=== PATIENT | female | born 1960 | race Caucasian/White ===

== ENCOUNTER → 2019-11-20 10:54 | Outpatient (CLI) | payer OTHER, SELFPAY ==
[2019-11-20 11:53] LABS: Add Manual Diff / Slide Review NO; Basophils Absolute Auto 0 /uL (0-100); Basophils Percent Auto 0.8 % (0-2); Eosinophils Absolute Auto 100 /uL (0-450); Eosinophils Percent Auto 1.4 % (2-4); Hematocrit 39.2 % (36-46); Hemoglobin 13.4 g/dL (12.0-16.0); Lymphocytes Absolute Auto 1800 /uL (1100-4500); Lymphocytes Percent Auto 33.6 % (25-40); Mean Corpuscular HGB Conc 34.2 % (30-36); Mean Corpuscular Hemoglobin 29.6 PG (26-34); Mean Corpuscular Volume 86.7 fL (80-100); Monocytes Absolute Auto 400 /uL (0-900); Monocytes Percent Auto 8.3 % (3-14); Neutrophils Absolute Auto 3000 /uL (1500-7000); Neutrophils Percent Auto 55.9 % (50-75); Platelet Count 195 X10^3/uL (150-400); Red Blood Cell Count 4.53 X10^6/uL (4.0-5.2); White Blood Cell Count 5.4 X10^3/uL (4.5-11.0)
[2019-11-20 11:54] LABS: Hemoglobin A1C% w Est Avg Glu 5.5 % (4.0-6.0)
[2019-11-20 12:03] LABS: BUN Creatinine Ratio 30.3 (6-22); Blood Urea Nitrogen 20 mg/dL (7-17); Calcium 9.3 mg/dL (8.4-10.2); Carbon Dioxide 30 mmol/L (22-32); Chloride 105 mmol/L (98-107); Estimated Glomerular Filt Rate > 60.0 mL/min (>60); Glucose 106 mg/dL (80-110); HEMOLYSIS < 15 (0-50); Potassium 4.1 mmol/L (3.4-5.1); Sodium 140 mmol/L (137-145)
== END ==
PROVIDERS: Family Provider Naturopath; PCP Physician Assistant; Referring Provider Orthopaedic Surgery; Visit Provider Orthopaedic Surgery
DX: Z01.818 Encounter for other preprocedural examination (principal); Z01.812 Encounter for preprocedural laboratory examination; R73.9 Hyperglycemia, unspecified
CPT/HCPCS: 36415; 80048; 83036; 85025; 93005

== ENCOUNTER 2019-12-11 08:05 | Day surgery (SDC) | payer OTHER, SELFPAY ==
[2019-11-26 09:01] VITALS: BMI 28.4
[2019-12-11] VITALS (16 sets, daily range): BP systolic 100–174; BP diastolic 61–99; PULSE 48–85; RESP 9–17; TEMP 35.4–38.1; O2SAT 91–100; BMI 28.4
--- NOTE | 2019-12-11 06:00 | DI.RAD.S_ITS ---
PROCEDURE: XR KNEE RT 1TO2V INDICATIONS: Post op total knee TECHNIQUE: 2 view(s) of the knee acquired. COMPARISON: [facility], XR KNEE ARTHRITIC SERIES RT, 07/11/2019, 13:27. FINDINGS: Bones: Patient is status post knee joint arthroplasty. Hardware components are in expected positions. Visualized bony structures are intact. Soft tissues: Overlying postoperative changes are noted. IMPRESSION: Expected postsurgical change for right knee arthroplasty. Dictated by: Danica Toussaint MD, PhD on 12/11/2019 at 18:35 Approved by: Danica Toussaint MD, PhD on 12/11/2019 at 18:40
[2019-12-11] MEDS: ACETAMINOPHEN 325 MG TABLET 975 MG PO (09:04)
[2019-12-11] MEDS: PREGABALIN 75 MG CAPSULE PO (09:05)
[2019-12-11] MEDS: LACTATED RINGERS 1,000 ML 42 ML IV ×2 (09:05→12:19)
[2019-12-11] MEDS: CELECOXIB 200 MG CAPSULE PO (09:05)
--- NOTE | 2019-12-11 09:45 | PM.PREOP ---
Pre-operative Note COVID-19 COVID-19 status: Negative Result date/Date tested (Pos, Neg/Pending): 12/08/19 Interval Note History & Physical reviewed/Exam performed by Physician: Yes Changes to H&P: No
--- NOTE | 2019-12-11 09:57 | P.OP_ITS ---
Operative Date/Time/Diagnoses Date of procedure: 12/11/19 Time of procedure: 12:35 Pre-op diagnosis: Right knee osteoarthritis Post-op diagnosis: same Procedure & Clinicians Procedure: Right total knee replacement Same procedure as scheduled: Yes Indications: The patient has had progressively worsening right knee pain with radiographic changes consistent with arthritis. Non-operative management has failed and the patient has requested total knee replacement. The risks, benefits and alternatives to surgery were discussed with the patient prior to proceeding. Risks discussed included, but were not limited to, failure to relieve pain, stiffness, infection, nerve damage, deep venous thrombosis, pulmonary embolism, stroke, coma, heart attack, permanent paralysis and , as well as the potential need for eventual revision of the prosthetic. Surgeon: Aguila Cam Manager Data Warehouse: Deisy Pulido Click Yes if Unassisted: No Anesthesia Type: General, Spinal and Local Operative Notes Findings: Severe medial and moderate patellofemoral osteoarthritis with flexion contracture Closure Type: primary Specimen(s): none sent Prosthetic devices, grafts, tissues, transplants, or devices: Implants used in this procedure were manufactured by the [employer] and [employer] and included the BCS II Journey total knee replacement with a size 6 right Oxinium femoral component, a size 5 right non porous tibial base plate, a 9 mm cross- linked polyethylene tibial insert, and a 32 mm oval Meredith II patellar component. Applied: implant(s) Estimated Blood Loss (mL): 50 Blood products transfused: none Tourniquet time (min): 56 Procedure in detail: The patient was seen in the pre-operative area, where the patient identified the right knee as the operative site and this was marked with my initials. The patient received pre-operative antibiotics, and was taken to the operating room and placed on the operative table in the supine position. After satisfactory anesthesia, a physician practice administrator out was performed. The right leg was encircled with a tourniquet about the proximal thigh, and the leg was prepared from the toes to the tourniquet with ChloroPrep in the usual fashion and draped through sterile drapes. The leg was elevated and exsanguinated with Eschmark bandage and the tourniquet inflated to 250 mmHg pressure. The knee was approached through an approximately 18 cm incision centered over the patella and carried into the knee through a medial parapatellar arthrotomy. The anterior osteophytes and soft tissues were removed. The rotational landmarks of Gadsden's line and the transepicondylar axis were marked on the femur with electrocautery, and intramedullary guide holes for the femur and tibia were created. The distal femoral cut was made in 6 degrees of valgus using the intramedullary guide at the +2 cut setting due to the pre-existing flexion contracture. The proximal tibial cut was then made using the intramedullary guide, taking 9 mm of bone off the less involved side. The extension gap was checked and the rotation of the femoral component confirmed with the gap balancing system. The anterior, posterior and chamfer cuts were then made. The posterior osteophytes and soft tissues were then removed. The posterior capsule was injected with part of a mixture of 60 ml 0.25% Marcaine mixed with 20 ml Exparel and 4 mg of morphine for post-operative pain control. The remainder of this mixture was injected into the capsule and subcutaneous tissues during cement curing. The tibia was prepared with the rotation set by an extra medullary guide. Trial tibial and femoral components were then placed and the intercondylar notch cut through the femoral trial. Range of motion was 0-135 degrees, with good stability throughout the range. The patella was then cut to accommodate the patellar prosthetic. There was no need for a lateral release. The trials were then removed, and the femoral hole plugged with a bone plug. The bone was prepared with pulsatile lavage, and dried with a sponge. Cement was applied and the final prosthetics placed. Excess cement was removed during and after cement curing. After confirming there was no extruded cement posteriorly, the final tibial insert was placed. The knee was copiously irrigated and the tourniquet deflated. Hemostasis was obtained. The capsule was closed with in terrupted # 2 polyester suture. The subcutaneous layer was closed with 3-0 Vicryl, and the skin with a running 3-0 V-Lock suture and Dermabond. An Aquacel Ag dressing was applied and the patient was taken to recovery having tolerated the procedure well. Complications: none Post-operative Condition: stable Disposition: PACU Plan for aftercare: The patient will be maintained on a standard total knee replacement protocol with weight bearing as tolerated. The patient will receive aspirin and sequential compression devices for DVT prophylaxis. The patient will be discharged home when safe for the home environment.
[2019-12-11] MEDS: CEFAZOLIN 2 GM/100 ML FROZ.PIGGY IV (10:41)
[2019-12-11] MEDS: TRANEXAMIC ACID 1,000 MG VIAL 1000 MG INJ ×2 (11:06→12:09)
--- NOTE | 2019-12-11 11:20 | SUR.OPER ---
Supine on padded OR bed. Pillow under head, arms secured on padded armboards <90 degree abduction. Safety belt across torso. Non-operative leg secured with tape over blanket over lower leg. Operative leg secured in Richard positioner. Foam padded brace at thigh of operative leg.
[2019-12-11] MEDS: BUPIVACAINE 0.25% W/ EPI 30 ML VIAL 60 ML INJ (11:29)
[2019-12-11] MEDS: MORPHINE 4 MG/ML INJ INJ (11:30)
[2019-12-11] MEDS: BUPIVACAINE LIPOSOME 266 MG/20 ML VIAL INJ (11:30)
[2019-12-11] MEDS: fentaNYL 100 MCG/2 ML INJ IV ×2 (12:47→12:56)
[2019-12-11] MEDS: HYDROMORPHONE 2 MG INJ IV ×4 (12:47→13:15)
[2019-12-11] MEDS: OXYCODONE IR 5 MG TABLET PO ×4 (13:28→20:50)
--- NOTE | 2019-12-11 14:13 | PC.NURSE ---
Day shift: Pt on unit at approx 1415 from PACU.
--- NOTE | 2019-12-11 14:19 | SUR.PHASEI ---
Patient taken up to room 210 with all belongings. Left in stable condition with receiving RN at bedside.
[2019-12-11] MEDS: LACTATED RINGERS 1,000 ML 100 ML IV ×2 (16:27→22:11)
[2019-12-11] MEDS: ACETAMINOPHEN 325 MG TABLET 650 MG PO ×2 (16:27→17:13)
[2019-12-11] MEDS: ONDANSETRON 4 MG ODT PO (16:40)
[2019-12-11] MEDS: IBUPROFEN 400 MG TABLET PO ×2 (17:10→20:50)
[2019-12-11] MEDS: ASPIRIN EC 81 MG TABLET PO (20:49)
[2019-12-11] MEDS: DOCUSATE 100 MG CAPSULE PO (20:50)
[2019-12-11] MEDS: PANTOPRAZOLE 20 MG TABLET PO (20:53)
[2019-12-12 00:25] VITALS: BP 115/60; PULSE 64; RESP 18; TEMP 36.2; O2SAT 96
[2019-12-12] MEDS: OXYCODONE IR 5 MG TABLET PO ×3 (00:28→12:58)
[2019-12-12 04:10] VITALS: BP 101/54; PULSE 63; RESP 18; TEMP 36.3; O2SAT 96
[2019-12-12] MEDS: IBUPROFEN 400 MG TABLET PO ×2 (05:06→08:49)
[2019-12-12] MEDS: PANTOPRAZOLE 20 MG TABLET PO (05:18)
--- NOTE | 2019-12-12 07:30 | PM.DS.1 ---
History of Present Illness History of Present Illness Date Patient Seen: 12/12/19 Time Patient Seen: 07:30 Chief complaint: Right Total knee Arthroplasty Narrative: History and physical is contained in the chart previously completed note. Please refer to that note for this information. Discharge Providers Provider Discharge Date: 12/12/19 Primary care physician: Anabelle Bishop PA-C Consults: 12/11/19 14:13 Consult to Discharge Planning Routine Comment: Consult to Physical Therapy Evaluate & Treat Comment: Physician Instructions: postop TKA protocol Discharge provider: Aguila Cam MD Summary Hospital Course Discharge Diagnosis: 1. Right knee osteoarthritis 2. Mild post hemorrhagic anemia Hospital Course: The patient was admitted to the hospital and taken directly to the operating room on December 11, 2019 where she underwent a right total knee replacement without complications. She was stable postoperatively overnight with good pain control. On postoperative day 1 it appears she will be ready for discharge later today. Status at Discharge Cognitive/behavioral status at discharge: oriented Functional status at discharge: uses cane/walker Overall status at discharge: patient is progressing back to baseline Time Spent with Patient Time spent: Less than 30 minutes Exam Vital Signs (past 8 hours): - 12/12/19 00:25 12/12/19 04:10 Temperature 97.2 F L 97.4 F L Pulse Rate 64 63 Respiratory Rate 18 18 Blood Pressure 115/60 101/54 L Pulse Oximetry 96 96 Oxygen Delivery Method Room Air Oxygen Flow Rate 0 Narrative Exam Narrative: Right knee wound is dressed with no drainage on the bandage. Calf is soft. Light touch and motion are intact in the right lower extremity. Objective Labs Result Diagrams: 12/12/19 05:20 Labs: Laboratory Results - last 24 hr 12/12/19 05:20 Hgb 11.0 L Hct 33.0 L Discharge Assessment & Plan Assessment and Plan Assessment: Stable postop day 1 from right total knee replacement. She has an anticipated post hemorrhagic anemia. She has been able to get up and go to the bedside commode and it is reasonable to assume she will be ready for discharge later in the day. Plan of Treatment: Discharged today with follow-up in my office in 2 weeks. Discharge prescriptions for oxycodone and Vistaril are on the chart along with instructions for use of Tylenol, ibuprofen and low-dose aspirin. DVT prophylaxis will be with low-dose aspirin and frequent ambulation. Discharge Plan Discharge Plan Patient Disposition: Home Discharge Med Rec/Prescriptions Prescriptions: New acetaminophen 325 mg Tablet 650 mg PO TID 30 Days Qty: 180 RF: 0 aspirin 81 mg Tablet,Delayed Release (Dr/Ec) 81 mg PO BID 42 Days Qty: 84 RF: 0 ibuprofen 400 mg Tablet 400 mg PO Q4HR 30 Days RF: 0 oxycodone 5 mg Tablet 5 mg PO Q4H PRN (Reason: Pain, Moderate (4-6)) Qty: 40 RF: 0 hydroxyzine pamoate 25 mg Capsule 25 mg PO Q6HR PRN (Reason: Nausea) Qty: 30 RF: 0 Continued diphenhydramine-acetaminophen [Acetaminophen PM] 25-500 mg Tablet 0.5 tab PO BEDTIME PRN (Reason: Sleep) RF: 0 lysine 500 mg Tablet 500 mg PO DAILY RF: 0 omeprazole 20 mg Capsule,Delayed Release(Dr/Ec) 20 mg PO DAILY PRN (Reason: gerd symptoms) RF: 0 Discontinued ibuprofen 200 mg Capsule 400 mg PO BEDTIME PRN (Reason: Pain) RF: 0 Follow up/Referrals: Aguila Cam MD [Physician] - 2 Weeks Discharge Orders: Discharge (Order); Ordered 12/12/19 Ordered By: Aguila Cam Provider Discharge Instructions Diet: Diet as Tolerated and Regular Activity: You may bear weight as tolerated on your right leg. Cold/Heat Therapy: Apply ice for 15 minutes every hour as needed for pain control to the right knee. Skin/Wound/Dressing Care Report to your healthcare provider any signs of infection, such as:: chills, fever, night sweats, increased pain, unusual drainage and unusual redness Dressing: Remove the Buzz wrap 3 days after surgery. You may remove the Buzz wrap to shower. Leave the deeper dressing in place until your follow-up appointment. You may shower with the dressing in place. If the central strip of the dressing becomes saturated with either water or blood, please call the office. Visit Report/Discharge Packet Instructions: DI for Knee Replacement Stand Alone Forms: Surgery Discharge Discharge Data Primary Care Provider: Anabelle Bishpo Attending Provider: Aguila Cam Quality VTE Deep Vein Thrombosis/Pulmonary Embolism Present on Admission: No
[2019-12-12 08:10] VITALS: BP 116/72; PULSE 66; RESP 16; TEMP 36.6; O2SAT 98
[2019-12-12] MEDS: ASPIRIN EC 81 MG TABLET PO (08:49)
[2019-12-12] MEDS: DOCUSATE 100 MG CAPSULE PO (08:50)
[2019-12-12] MEDS: ACETAMINOPHEN 325 MG TABLET 650 MG PO (08:50)
--- NOTE | 2019-12-12 10:13 | PC.NURSE ---
Patient has an aquacel dressing to her r.knee with an lacho wrap in place. CMS wnl and ppx2. Patient is moving well with physical therapy. She is going to leave here at 1315 to catch the 1410 ferry to [facility]. Priority loading pass given to patient, will discharge around 1300 and go over her paperwork.
--- NOTE | 2019-12-12 10:19 | PT.IIE ---
Current Diagnoses Unilateral primary osteoarthritis, right knee (12/11/19) Surgery Performed Operation Date: 12/11/19 10:15 Actual Procedures p Total Knee Arthroplasty(Right) - Aguila Cam MD Surgical History (Last Updated 11/26/19 @ 09:19 by Blessing Winchester RN) History of dilatation and curettage (Acute) Hx of microdiscectomy (Acute ~2004) Medical History (Last Updated 11/26/19 @ 09:19 by Blessing Winchester RN) Adrenal abnormality (Acute ~2017) Depression (Acute) GERD (gastroesophageal reflux disease) (Acute) Injury (Acute ~1982) Panic attacks (Acute) Tinnitus (Acute) Physical Therapy Inpatient Evaluation/Re-Eval M1 PT/OT-IP Prior Functional Status Start: 12/12/19 08:31 Freq: NEEDED Status: Active Protocol: Document 12/12/19 10:05 AW (Rec: 12/12/19 10:19 AW [id number]) Medical Review Prior Functional Status Medical History Reviewed Yes Communication WNL Mobility and Gait Pt is an independent ambulator who can walk up to a mile Activities of Daily Living and IADL's IND Social History Household Members significant other Living Arrangements House Number of Floors (Floors) Two Floors Number of Stairs To Enter/Railing? 3 YOUSUF with left rail ascending . Stairs are wide enough to have a AUTOMOTIVE AIRCONDITIONING MECHANIC on the right side. Pt will stay on the main/entry level paralegal for now. 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 She lives with her significant other, Sergei, who also works real estate internship. He is planning to work this , Tuesday, and part of a day next Tuesday but will otherwise be home for a few weeks. M2 PT-IP Current Condition Start: 12/12/19 08:31 Freq: NEEDED Status: Active Protocol: Document 12/12/19 10:05 AW (Rec: 12/12/19 10:19 AW [email or web address]) Physical Therapy Current Condition Current Condition Evaluation Date 12/12/19 Treatment Diagnosis R TKA; difficulty in walking Onset Date 12/11/19 Weight Bearing Status Weight Bearing Status Weight Bear as Tolerated M3 PT-IP Subjective Start: 12/12/19 08:31 Freq: NEEDED Status: Active Protocol: Document 12/12/19 10:05 AW (Rec: 12/12/19 10:19 AW [email or web address]) Subjective Physical Therapy Visit Type Type Initial Evaluation Visit Start Time 09:00 Visit Stop Time 09:27 Total Visit Minutes 27 Notes Pt's SO present throughout evaluation Physical Therapy Visit Comments Patient Comments Pt is willing to participate with PT Patient Goals Pt hopes to be on a 1415 ferry back to [facility] today Therapy Pain Assessment Pain When Pain Assessed At Rest Pain Present Pain Present Pain Reported Location right knee Intensity 5 Scale Used 5/10 at rest; 7/10 with mobility Pain Management Techniques Apply Cold,Timing of Activity with Medications M4 PT-IP Mobility and Gait Start: 12/12/19 08:31 Freq: NEEDED Status: Active Protocol: Document 12/12/19 10:05 AW (Rec: 12/12/19 10:19 AW [email or web address]) PT-Bed Mobility Assessment Supine to Sit Supine to Sit Standby Assistance Scooting Scooting to Edge of Bed Standby Assistance PT-Transfer Assessment Sit to and From Stand Sit to and from Stand Standby Assistance,Use of Upper Extremities Equipment Transfer Assistive Device Gait Belt,Front Wheeled Walker Transfers Transfer Destination Chair Transfer Technique pt ambulated with FWW Transfer Ability Level of Assist Standby Assistance Comments Mobility Comments With HOB flat, pt completed supine to sit SBA with use of L LE to lift the operative leg out of bed. Pt's SO was instructed in donning the gait belt. Pt completed sit to stand with FWW SBA and proceeded to ambulate in the halls with FWW SBA. After completing stair training, pt returned to the room and transferred to the chair SBA. She was left with the DISPLAYER to assist with ADL's. Gait Assessment Gait Gait Assistance Required: Standby Assistance Distance (Feet) 150 Able to Maintain Weight Bearing Status Yes During Gait Assistive Devices Assistive Device Gait Belt,Front Wheeled Walker Gait Deviations General Gait Pattern Antalgic,Decreased Stride Length,Decreased Feet Clearance,Flexed Trunk,Step-to Gait Factors Limiting Gait Function Factors Limiting Gait Function Decreased Activity Tolerance, Decreased Sensation,Decreased Strength,Limited Range of Motion,Pain,Poor Balance Comments Gait Comments Pt was able to ambulate 150 feet x 2 with FWW SBA. She responded well to cues for heelstrike at initial contact and for equalizing her step lengths to promote R LE weightbearing. Stair Climbing Assessment Evaluation Level of Assist On Stairs Contact Guard Assistance,1 Person Assistance Devices Stair Climbing Assistive Devices Left Railing Technique/Endurance Stair Climbing Direction Ascend and Descend Stair Climbing Technique Step to Step Number of Steps Climbed 3 Query Text: Stair Climbing Set # Repetitions (reps) 1 Comments Stair Climbing Comments Pt's SO was able to provide safe AUTOMOTIVE AIRCONDITIONING MECHANIC to approximate conditions at home. PT-Balance Assessment Sitting Balance and Reactions Static Sitting Balance Ability Normal Dynamic Sitting Balance Ability Normal Standing Balance and Reactions Static Standing Balance Ability Good Dynamic Standing Balance Ability Good Device Used FWW M5 PT-IP Objective Assessments Start: 12/12/19 08:31 Freq: NEEDED Status: Active Protocol: Document 12/12/19 10:05 AW (Rec: 12/12/19 10:19 AW [id number]) Orientation Orientation/Cognition Level of Alertness Alert Orientation Name,Day of Week,Place, Situation Language Function Ability No Deficits Noted Safety Awareness Understands Safety Issues Memory Description No Deficits Noted Gross Range of Motion Lower Extremity ROM Assessment Right Impaired Impairments lacks 5 degrees knee extension Strength Lower Extremity Strength Assessment Right Impaired Comments Strength Comments L LE grossly 4+/5 Coordination Assessment Gross Coordination Gross Coordination WNL Sensation Assessment Sensation Gross Sensation Right LE Impaired,Left LE Impaired Comments Sensation Comments Pt reports dull sensation in bilateral feet consistent with history. No new symptoms. Muscle Tone Muscle Tone WNL Yes M6 PT-IP Treatment Start: 12/12/19 08:31 Freq: NEEDED Status: Active Protocol: Document 12/12/19 10:05 AW (Rec: 12/12/19 10:19 AW [email or web address]) Physical Therapy Treatment Exercises Exercises Ankle Pumps,Quad Sets,Heel Slides,Passive Knee Extension Hang Education Education Provided Precautions,Weight Bearing Status,Post-Op Packet,Safety Other Treatments Other Treatment Performed Provided education on role of PT, plan of care, weightbearing status, and safe use of FWW M7 PT-IP Assessment and Plan Start: 12/12/19 08:31 Freq: NEEDED Status: Active Protocol: Document 12/12/19 10:05 AW (Rec: 12/12/19 10:19 AW [email or web address]) PT Summary Assessment and Plan Potential Rehabilitation Potential Excellent Status of Condition at Evaluation Stable Summary Impairments Pain,ROM,Strength,Balance, Sensation,Bed Mobility, Transfers,Gait,Activity Tolerance Assessment Summary Claudia is an active 59 yo woman seen for PT evaluation on POD1 following R TKA. 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 On evaluation , pt required SBA for all mobilities and her significant other was able to provide safe, appropriate assist. She is deemed safe for discharge to home with assist and outpatient PT once medically cleared. Frequency of Treatment Frequency Of Treatment Discharge Recommendations To Nursing Amount of Assist Needed Standby Assistance Discharge Recommendations PT Discharge Recommendations Home with Assistance, Outpatient PT Transportation Needs at Discharge Private Vehicle
[2019-12-12 11:35] VITALS: BP 117/66; PULSE 59; RESP 14; TEMP 36.6; O2SAT 98
== END 2019-12-12 13:00 | disposition home or self-care (01) ==
LOC: OR 08:18 → AC 14:07
PROVIDERS: Family Provider Naturopath; PCP Physician Assistant; Referring Provider Orthopaedic Surgery; Visit Provider Orthopaedic Surgery
PROC: 0SRC0JZ Replacement of Right Knee Joint with Synthetic Substitute, Open Approach (ICD-10-PCS; CPT 27447; principal; 2019-12-11 10:15)
DX: M17.11 Unilateral primary osteoarthritis, right knee (principal); K21.9 Gastro-esophageal reflux disease without esophagitis; D50.0 Iron deficiency anemia secondary to blood loss (chronic)
CPT/HCPCS: 27447; 36415; 36592; 73560; 85014; 85018; 97110; 97161; C1776; C9290; J0690; J1170; J2250; J2270; J2704; J3010

== ENCOUNTER → 2020-11-06 14:00 | Outpatient (CLI) | payer OTHER, SELFPAY ==
[2019-12-11 14:40] VITALS: BMI 28.4
--- NOTE | 2020-11-06 14:02 | DI.MRI.S_ITS ---
PROCEDURE: MR LUMBAR SPINE WO CON INDICATIONS: Radiculopathy, lumbar region TECHNIQUE: Noncontrast sagittal T1 spin echo and T2 fast echo, sagittal STIR, axial T1 and T2 fast spin echo through the lumbar spine. In cases with scoliosis, additional coronal T2 fast spin echo may be performed. COMPARISON: None. FINDINGS: Image quality: Excellent. Alignment and Curvature: Straightening of the usual lumbar lordosis. Mild dextroscoliosis centered at L3-L4. No listhesis. Vertebral body heights maintained. Bone Marrow: No suspicious focal marrow signal abnormality. Mild discogenic marrow edema at the opposing endplates from L3-L4 through L5-S1. Mild periarticular marrow edema associated with facet osteoarthropathy from L3-L4 through L5-S1, perhaps slightly greater on the left. Spinal Cord: Normal position and appearance of the conus. Regional Soft Tissues: Prevertebral and paraspinous soft tissues are within normal limits. The included unenhanced retroperitoneal visceral structures demonstrate no acute abnormality. T12-L1: No spinal canal or neural foraminal stenosis. L1-L2: No spinal canal or neural foraminal stenosis. L2-L3: Diffuse disc bulge flattens the ventral thecal sac. No mass effect upon the traversing L3 nerve roots. Foraminal components of the disc bulge and facet hypertrophy contribute to mild bilateral neural foraminal stenosis. L3-L4: Diffuse disc bulge flattens the ventral thecal sac with mild displacement of the descending L4 nerve roots in both subarticular zones. Foraminal components of the disc bulge and facet hypertrophy contribute to mild bilateral neural foraminal stenosis. L4-L5: Diffuse disc bulge flattens the ventral thecal sac. No mass effect upon the descending L5 nerve roots. Foraminal components of the disc bulge contribute to mild bilateral neural foraminal stenosis in conjunction with facet hypertrophy. L5-S1: Diffuse disc bulge without mass effect upon the descending S1 nerve roots. Moderate right and mild left neural foraminal stenosis. IMPRESSION: Multilevel multifactorial degenerative changes. No definite evidence of focal nerve root impingement although there is mild displacement of the descending L4 nerve roots at the L3-L4 level and moderate neural foraminal stenosis on the right at the L5-S1 level. Correlate for any corresponding radicular symptoms. Dictated by: James Gill M.D. on 11/06/2020 at 15:15 Approved by: James Gill M.D. on 11/06/2020 at 15:18
== END ==
PROVIDERS: Family Provider Naturopath; PCP Physician Assistant; Referring Provider Physician Assistant Medical; Visit Provider Physician Assistant Medical
DX: M47.26 Other spondylosis with radiculopathy, lumbar region (principal); M48.07 Spinal stenosis, lumbosacral region
CPT/HCPCS: 72148

== ENCOUNTER 2021-03-26 12:23 | Outpatient (CLI) | payer OTHER, SELFPAY ==
[2019-12-11 14:40] VITALS: BMI 28.4
[2021-03-26] VITALS (7 sets, daily range): BP systolic 117–154; BP diastolic 68–87; PULSE 52–62; RESP 9–20; TEMP 36.1; O2SAT 95–99
--- NOTE | 2021-03-26 12:25 | DI.RAD.S_ITS ---
PROCEDURE: PAIN L/S TRANSFORAMINAL INJECT INDICATIONS: SPONDYLOSIS COMPARISON: Outside Facility, RG, XR LUMBAR SPINE 6+ VIEWS, 02/24/2021, 11:30. FINDINGS: Fluoroscopic spot filming was performed to verify placement of a spinal needle on the right at the L4-L5 level, as labeled on the films. Appropriate location of the needle tip was confirmed by injection of iodinated contrast. IMPRESSION: Intraprocedural examination within normal limits. Dictated by: Harshal Scott M.D. on 03/26/2021 at 12:57 Approved by: Harshal Scott M.D. on 03/26/2021 at 12:58
[2021-03-26] MEDS: fentaNYL 100 MCG/2 ML INJ 50 MCG IV (13:20)
[2021-03-26] MEDS: MIDAZOLAM 5 MG/5 ML VIAL IV (13:20)
[2021-03-26] MEDS: IOPAMIDOL 15 ML VIAL 3 ML INJ (13:24)
[2021-03-26] MEDS: BUPIVACAINE 0.25% (PF) VIAL 2 ML INJ (13:25)
[2021-03-26] MEDS: DEXAMETHASONE 10 MG/ML VIAL 20 MG INJ (13:26)
[2021-03-26] MEDS: BETAMETHASONE 30 MG/5 ML MDV 12 MG INJ (13:26)
--- NOTE | 2021-03-26 13:38 | P.PCN_ITS ---
Date/Time/Diagnoses Date of procedure: 03/26/21 Time of procedure: 13:39 Pre-procedure diagnosis: 1. FORAMINAL STENOSIS WITH LE SYMPTOMS Post-procedure diagnosis: same Procedure Notes Procedure: 1. FLUOROSCOPICALLY GUIDED CONTRAST CONTROLLED TRANSFORAMINAL EPIDURAL STEROID INJECTION - RIGHT L4/5 TFESI Indications: Claudia is referred by CHEN Bishop for treatment of Foraminal Stenosis with Right LE Symptoms Physician: Aleksander Chambers Total Fluoroscopy time (seconds): 12 Total sedation minutes: 13 Complications: none Procedure in detail & Post-procedure care: FINDINGS Foraminal Nerve Root Compression secondary to disc disease and facet hypertrophy DESCRIPTION OF PROCEDURE Following review of allergy and review of potential side effects and complications, including, but not necessarily limited to, infection, allergic reaction, local tissue breakdown, stroke, temporary or permanent nerve injury, paralysis, and possible , the patient indicated that the patient understood and agreed to proceed. An informed consent document was signed by the patient, witnessed by a nurse, and placed in the patient's chart. Additionally, other treatment options including medications, modalities, and physical therapy were reviewed with the patient. After review of previous anaesthesic history and IV conscious sedation the patient was deemed safe to proceed with today?s procedure with IV conscious sedation as ASA class II designation. Safety time-out was performed to confirm patient ID, procedure to be performed and site of procedure. IV sedation was accomplished with a combination of 2mg of Versed and 50mcg of Fentanyl was administered by the RN after DO order, titrated to patient comfort during the course of the procedure while the patient remained responsive to all verbal com mands In the prone position following sterile prep and drape of the lumbar region, the right L4/5 posterior neuroforamen was identified fluoroscopically. The skin was anesthetized via a 25-gauge 1.5-inch needle with 1% lidocaine solution. At this point, a 25-gauge 3.5-inch spinal needle was atraumatically introduced and advanced under fluoroscopic guidance through the posterior right L4/5 ne uroforamen to approximately the anterior aspect of the canal. Depth was confirmed on lateral view. Following negative aspiration, injection of approximately 1.5cc of Isovue 200 under live fluoroscopy in the AP view confirmed excellent flow along the nerve root, into the epidural space without vascular or intrathecal uptake observed Radiological data, including multiple fluoroscopic views of the lumbosacral spine, reveal a spinal needle at the right L4/5 posterior neuroforamen. Subsequent views show flow of contrast material flowing superiorly and inferiorly along the nerve root confirming epidural flow. Subsequently, a test dose of 1.5 cc of 1% lidocaine solution was administered and patient was observed for two minutes for signs or symptoms of complications, including abdominal pain, shortness of breath, bilateral upper or lower extremity weakness, nausea and vomiting, prior to steroid injection. At this point, a total of 4cc or 20mg of dexamethasone and 12mg of betamethasone was injected without incident. The procedure tolerated the procedure well without signs or symptoms of complications prior to transfer to the recovery area continued monitoring without incident. The patient was then transferred to the recovery area where they were observed for an appropriate time after the injection. The patient reported a VAS score of 7 prior to the procedure and a post-p rocedure VAS of 0. POST OP INSTRUCTIONS The patient was provided a Pain Log to continue to record their response to the target-specific procedure prior to follow-up visit with their referring physician. Additionally, specific post-injection care instructions and a contact number to our office were provided if concerns arise regarding possible complications associated with the procedure are suspected.
== END 2021-03-26 13:55 | disposition home or self-care (01) ==
LOC: RAD 12:25
PROVIDERS: Family Provider Naturopath; PCP Physician Assistant; Referring Provider Physical Medicine & Rehabilitation; Visit Provider Physical Medicine & Rehabilitation
DX: M48.061 Spinal stenosis, lumbar region without neurogenic claudication (principal); M51.16 Intervertebral disc disorders with radiculopathy, lumbar region
CPT/HCPCS: 64483; 99152; J0702; J1100; J2250; J3010